=== PATIENT | female | born 1965 | race Caucasian/White ===

== ENCOUNTER 2019-04-16 10:38 | Inpatient (IN) | payer OTHER ==
[~2019-04-16] VITALS: Ht 175.3 cm; Wt 127.0 kg
[2019-04-16] MEDS ORDERED: NAPR500 PO (11:08)
[2019-04-16] MEDS ORDERED: CYCL10 PO (11:08)
[2019-04-16 13:37] LABS: BASOPHILS ABSOLUTE AUTO 0.03 K/mm3 (0.00-0.23); BASOPHILS PERCENT AUTO 0 % (0-2); EOSINOPHILS ABSOLUTE AUTO 0.07 K/mm3 (0.00-0.68); EOSINOPHILS PERCENT AUTO 1 % (0-6); Hemoglobin 13.6 g/dL (11.5-16.0); IMMATURE GRAN ABSOLUTE AUTO 0.03 K/mm3 (0.00-0.10); IMMATURE GRAN PERCENT AUTO 0 % (0-1); LYMPHOCYTES ABSOLUTE AUTO 1.24 K/mm3 (0.84-5.20); LYMPHOCYTES PERCENT AUTO 14 % (21-46); MONOCYTES ABSOLUTE AUTO 0.58 K/mm3 (0.16-1.47); MONOCYTES PERCENT AUTO 6 % (4-13); Mean Corpuscular HGB Conc 32.4 g/dL (31.5-36.5); Mean Corpuscular Volume 90 fL (80-100); Mean Platelet Volume 11.1 fL (9.1-12.4); NEUTROPHILS ABSOLUTE AUTO 7.13 K/mm3 (1.96-9.15); NEUTROPHILS PERCENT AUTO 79 % (41-73); Platelet Count 272 K/mm3 (150-400); RDW Coefficient Variation 13.1 % (11.7-14.2); RDW Standard Deviation 42.9 fL (35.1-46.3); Red Blood Cell Count 4.69 M/mm3 (3.80-5.20); White Blood Cell Count 9.08 K/mm3 (4.00-11.30)
[2019-04-16 14:05] LABS: Alanine Aminotransfer (ALT/SGP 22 U/L (12-78); Albumin/Globulin Ratio 0.6 (0.8-1.8); Alk Phos 110 U/L (50-136); Anion Gap 7 mmol/L (6-16); Aspartate Aminotrans (AST/SGOT 17 U/L (12-37); Bilirubin, Total 0.5 mg/dL (0.1-1.0); Blood Urea Nitrogen 13 mg/dL (8-24); Bun/Creatinine Ratio 19.5 (12.0-20.0); CO2, Blood 25 mmol/L (21-32); Calcium, Blood 8.9 mg/dL (8.5-10.1); Chloride, Blood 107 mmol/L (98-108); Creatinine, Blood 0.67 mg/dL (0.40-1.00); Globulin, Blood 4.9 g/dL (2.2-4.0); Glomerular Filtration Rate >60 (60-); Glucose, Blood 100 mg/dL (70-99); Potassium, Blood 3.6 mmol/L (3.5-5.5); Sodium, Blood 139 mmol/L (136-145); Total Protein, Blood 7.9 g/dL (6.4-8.2)
[2019-04-16] MEDS ORDERED: IBUP800 PO (14:11)
[2019-04-16] MEDS ORDERED: ACET500 PO (14:11)
[2019-04-16] MEDS ORDERED: MULTIVITAMINS1 EAC3 PO (14:12)
[2019-04-16] MEDS ORDERED: TURMERIC PO (14:12)
[2019-04-16 17:20] LABS: Source, Urine Clean Catch
[2019-04-16 17:22] LABS: Bilirubin, Urine Neg (Neg); Blood, Urine Neg (Neg); Glucose Qualitative, Urine Neg (Neg); Ketones, Urine 1+ (Neg); Leukocyte Esterase, Urine 1+ (Neg); Nitrite, Urine Neg (Neg); Protein, Urine Neg (Neg); Urobilinogen, Urine NORM (Normal)
[2019-04-16 17:29] LABS: Appearance, Urine Clear (Clear); Color, Urine Yellow (P-Yellow)
[2019-04-16 17:30] LABS: Red Blood Cells, Urine 0-2 /hpf (0-2)
[2019-04-16 17:31] LABS: Bacteria Few /hpf; Squamous Epithelial Cells Mod /hpf (Few)
--- NOTE | 2019-04-16 19:02 | NUR ---
ER ADMIT- PT ARRIVED TO ROOM 309 VIA REJI FROM ED AT 1745, PT A 4 PERSON SLIDE INTO BED. PT A/OX4. PT REPORTS 1/10 PAIN AT REST AND 8/10 PAIN TO LOWER BACK AND INTO BUTTOCKS WITH ANY MOVEMENT. PT REPORTS IT FEELS LIKE A LIGHTNING STRIKE. PT DENIES ANY N/T. PT REPORTS INCREASED PAIN WITH LIFTING BLE, RIGHT GREATER THEN LEFT. [employer] ENGINEER IN TO PLACE BACK BRACE ON. NO OTHER COMPLAINTS. REPORT GIVEN TO NIGHT RN.
[2019-04-17 05:39] LABS: BASOPHILS ABSOLUTE AUTO 0.03 K/mm3 (0.00-0.23); BASOPHILS PERCENT AUTO 1 % (0-2); EOSINOPHILS ABSOLUTE AUTO 0.15 K/mm3 (0.00-0.68); EOSINOPHILS PERCENT AUTO 3 % (0-6); Hematocrit 38.6 % (33.0-51.0); Hemoglobin 12.4 g/dL (11.5-16.0); IMMATURE GRAN ABSOLUTE AUTO 0.01 K/mm3 (0.00-0.10); IMMATURE GRAN PERCENT AUTO 0 % (0-1); LYMPHOCYTES ABSOLUTE AUTO 1.52 K/mm3 (0.84-5.20); LYMPHOCYTES PERCENT AUTO 26 % (21-46); MONOCYTES ABSOLUTE AUTO 0.52 K/mm3 (0.16-1.47); MONOCYTES PERCENT AUTO 9 % (4-13); Mean Corpuscular HGB 28.8 pg (26.0-34.0); Mean Corpuscular HGB Conc 32.1 g/dL (31.5-36.5); Mean Corpuscular Volume 90 fL (80-100); Mean Platelet Volume 11.1 fL (9.1-12.4); NEUTROPHILS ABSOLUTE AUTO 3.65 K/mm3 (1.96-9.15); NEUTROPHILS PERCENT AUTO 62 % (41-73); Platelet Count 249 K/mm3 (150-400); RDW Coefficient Variation 13.2 % (11.7-14.2); RDW Standard Deviation 43.9 fL (35.1-46.3); Red Blood Cell Count 4.31 M/mm3 (3.80-5.20); White Blood Cell Count 5.88 K/mm3 (4.00-11.30)
[2019-04-17 05:59] LABS: Anion Gap 7 mmol/L (6-16); Blood Urea Nitrogen 16 mg/dL (8-24); Bun/Creatinine Ratio 25.8 (12.0-20.0); CO2, Blood 25 mmol/L (21-32); Calcium, Blood 8.6 mg/dL (8.5-10.1); Chloride, Blood 105 mmol/L (98-108); Creatinine, Blood 0.62 mg/dL (0.40-1.00); Glomerular Filtration Rate >60 (60-); Glucose, Blood 98 mg/dL (70-99); Potassium, Blood 3.5 mmol/L (3.5-5.5); Sodium, Blood 137 mmol/L (136-145)
--- NOTE | 2019-04-17 06:28 | NUR ---
SHIFT SUMMARY: PATIENT HAS SLEPT WELL THIS SHIFT. VS ARE STABLE, PAIN IS WELL CONTROLED WITH ULTRAM GIVEN TWICE DURING SHIFT. PATIENT HAS BACK BRACE IN PLACE AND IS REPORTING MUCH LESS PAIN WHEN AMBULATING OR TRANSFERING.
--- NOTE | 2019-04-17 16:15 | NUR ---
REPORT CALLED TO LUIS Castellano AT [facility]. PT. BEING TRANSFERRED VIA [facility] TRANSPORT TO [facility], WILL BE IN ROOM 0593.
--- NOTE | 2019-04-17 16:52 | NUR ---
PT. JUST PICKED UP BY [facility] FOR TRANSPORT TO [facility]. IV LEFT IN PLACE AND BACK BRACE IN PLACE.
== END 2019-04-17 16:51 | disposition short-term general hospital (02) | DRG 552 ==
LOC: ER 10:38 → MEDS 16:46
PROVIDERS: Physician Assistant; ADMIT Family Medicine
DX: M46.47 Discitis, unspecified, lumbosacral region (principal); Z68.41 Body mass index [BMI] 40.0-44.9, adult; E66.9 Obesity, unspecified; Z87.891 Personal history of nicotine dependence; Z79.1 Long term (current) use of non-steroidal anti-inflammatories (NSAID)
CPT/HCPCS: 36415; 72131; 72158; 80048; 80053; 81001; 83605; 85025; 85651; 86141; 87040; 87086; 96365; 96366; 96367; 96372-59; 99285-25; A9270-GY; A9577; J0696; J1885; J3370; J7050

== ENCOUNTER 2019-04-20 00:59 | Day surgery (SDC) | payer OTHER ==
[~2019-04-20 00:59] MED LIST: ACET500 PO; CYCL10 PO; IBUP800 PO; MULTIVITAMINS1 EAC3 PO; NAPR500 PO; TURMERIC PO
[2019-04-20] MEDS ORDERED: CEFTRIAXONE2 GM IV (12:02)
== END 2019-04-20 11:42 | disposition home or self-care (01) ==
LOC: ATC 00:59
DX: M46.46 Discitis, unspecified, lumbar region (principal); E66.9 Obesity, unspecified; Z68.39 Body mass index [BMI] 39.0-39.9, adult; Z87.891 Personal history of nicotine dependence
CPT/HCPCS: 96365; J0696

== ENCOUNTER 2019-04-21 00:32 | Day surgery (SDC) | payer OTHER ==
[~2019-04-21 00:32] MED LIST changes: +CEFTRIAXONE2 GM IV
== END 2019-04-21 14:35 | disposition home or self-care (01) ==
LOC: ATC 00:32
DX: M46.47 Discitis, unspecified, lumbosacral region (principal); E66.9 Obesity, unspecified; Z68.39 Body mass index [BMI] 39.0-39.9, adult; Z79.2 Long term (current) use of antibiotics; Z79.1 Long term (current) use of non-steroidal anti-inflammatories (NSAID); Z79.899 Other long term (current) drug therapy; Z87.891 Personal history of nicotine dependence
CPT/HCPCS: 96365; J0696

== ENCOUNTER 2019-04-22 00:19 | Day surgery (SDC) | payer OTHER | END 2019-04-22 14:00 | disposition home or self-care (01) | LOC: ATC 00:19 | DX: M46.47 Discitis, unspecified, lumbosacral region (principal); E66.9 Obesity, unspecified; Z68.39 Body mass index [BMI] 39.0-39.9, adult; Z79.2 Long term (current) use of antibiotics; Z79.1 Long term (current) use of non-steroidal anti-inflammatories (NSAID); Z79.899 Other long term (current) drug therapy; Z87.891 Personal history of nicotine dependence | CPT/HCPCS: 96365; J0696 ==

== ENCOUNTER 2019-04-23 01:42 | Day surgery (SDC) | payer OTHER | END 2019-04-23 14:10 | disposition home or self-care (01) | LOC: ATC 01:42 | DX: M46.47 Discitis, unspecified, lumbosacral region (principal); E66.9 Obesity, unspecified; Z68.39 Body mass index [BMI] 39.0-39.9, adult; Z79.2 Long term (current) use of antibiotics; Z79.1 Long term (current) use of non-steroidal anti-inflammatories (NSAID); Z79.899 Other long term (current) drug therapy; Z87.891 Personal history of nicotine dependence | CPT/HCPCS: 96365; J0696 ==

== ENCOUNTER 2019-04-24 14:15 | Day surgery (SDC) | payer OTHER | END 2019-04-24 14:44 | disposition home or self-care (01) | LOC: ATC 14:15 | DX: M46.47 Discitis, unspecified, lumbosacral region (principal); E66.9 Obesity, unspecified; Z68.39 Body mass index [BMI] 39.0-39.9, adult; Z79.2 Long term (current) use of antibiotics; Z79.1 Long term (current) use of non-steroidal anti-inflammatories (NSAID); Z79.899 Other long term (current) drug therapy; Z87.891 Personal history of nicotine dependence | CPT/HCPCS: 96365; J0696 ==

== ENCOUNTER 2019-04-25 13:23 | Day surgery (SDC) | payer OTHER | END 2019-04-25 14:11 | disposition home or self-care (01) | LOC: ATC 13:23 | DX: M46.47 Discitis, unspecified, lumbosacral region (principal); E66.9 Obesity, unspecified; Z68.39 Body mass index [BMI] 39.0-39.9, adult; Z79.2 Long term (current) use of antibiotics; Z79.899 Other long term (current) drug therapy; Z87.891 Personal history of nicotine dependence | CPT/HCPCS: 96365; J0696 ==

== ENCOUNTER 2019-04-26 00:14 | Day surgery (SDC) | payer OTHER | END 2019-04-26 14:30 | disposition home or self-care (01) | LOC: ATC 00:14 | DX: M46.47 Discitis, unspecified, lumbosacral region (principal); E66.9 Obesity, unspecified; Z68.39 Body mass index [BMI] 39.0-39.9, adult; Z79.2 Long term (current) use of antibiotics; Z79.899 Other long term (current) drug therapy; Z87.891 Personal history of nicotine dependence | CPT/HCPCS: 96365; J0696 ==

== ENCOUNTER 2019-04-27 07:37 | Day surgery (SDC) | payer OTHER ==
[2019-04-27 14:52] LABS: BASOPHILS ABSOLUTE AUTO 0.03 K/mm3 (0.00-0.23); BASOPHILS PERCENT AUTO 0 % (0-2); EOSINOPHILS ABSOLUTE AUTO 0.08 K/mm3 (0.00-0.68); EOSINOPHILS PERCENT AUTO 1 % (0-6); Hematocrit 41.3 % (33.0-51.0); Hemoglobin 13.5 g/dL (11.5-16.0); IMMATURE GRAN ABSOLUTE AUTO 0.02 K/mm3 (0.00-0.10); IMMATURE GRAN PERCENT AUTO 0 % (0-1); LYMPHOCYTES ABSOLUTE AUTO 1.54 K/mm3 (0.84-5.20); LYMPHOCYTES PERCENT AUTO 23 % (21-46); MONOCYTES ABSOLUTE AUTO 0.54 K/mm3 (0.16-1.47); MONOCYTES PERCENT AUTO 8 % (4-13); Mean Corpuscular HGB Conc 32.7 g/dL (31.5-36.5); Mean Corpuscular Volume 89 fL (80-100); Mean Platelet Volume 10.8 fL (9.1-12.4); NEUTROPHILS PERCENT AUTO 68 % (41-73); Platelet Count 296 K/mm3 (150-400); RDW Coefficient Variation 13.2 % (11.7-14.2); RDW Standard Deviation 42.7 fL (35.1-46.3); Red Blood Cell Count 4.65 M/mm3 (3.80-5.20); White Blood Cell Count 6.81 K/mm3 (4.00-11.30)
[2019-04-27 15:21] LABS: Alanine Aminotransfer (ALT/SGP 27 U/L (12-78); Albumin, Blood 3.2 g/dL (3.4-5.0); Albumin/Globulin Ratio 0.6 (0.8-1.8); Alk Phos 94 U/L (50-136); Anion Gap 7 mmol/L (6-16); Aspartate Aminotrans (AST/SGOT 19 U/L (12-37); Bilirubin, Total 0.4 mg/dL (0.1-1.0); Blood Urea Nitrogen 11 mg/dL (8-24); Bun/Creatinine Ratio 16.3 (12.0-20.0); CO2, Blood 26 mmol/L (21-32); Calcium, Blood 9.1 mg/dL (8.5-10.1); Chloride, Blood 107 mmol/L (98-108); Creatinine, Blood 0.68 mg/dL (0.40-1.00); Glomerular Filtration Rate >60 (60-); Glucose, Blood 102 mg/dL (70-99); Potassium, Blood 4.1 mmol/L (3.5-5.5); Sodium, Blood 140 mmol/L (136-145); Total Protein, Blood 8.2 g/dL (6.4-8.2)
== END 2019-04-27 15:02 | disposition home or self-care (01) ==
LOC: ATC 07:37
PROVIDERS: Internal Medicine Infectious Disease
DX: M46.47 Discitis, unspecified, lumbosacral region (principal); E66.9 Obesity, unspecified; Z68.39 Body mass index [BMI] 39.0-39.9, adult; Z79.2 Long term (current) use of antibiotics; Z79.899 Other long term (current) drug therapy; Z87.891 Personal history of nicotine dependence
CPT/HCPCS: 80053; 85025; 86140; 96365; J0696

== ENCOUNTER 2019-04-28 00:02 | Day surgery (SDC) | payer OTHER | END 2019-04-28 14:29 | disposition home or self-care (01) | LOC: ATC 00:02 | DX: M46.47 Discitis, unspecified, lumbosacral region (principal); E66.9 Obesity, unspecified; Z68.39 Body mass index [BMI] 39.0-39.9, adult; Z79.2 Long term (current) use of antibiotics; Z79.1 Long term (current) use of non-steroidal anti-inflammatories (NSAID); Z79.899 Other long term (current) drug therapy; Z87.891 Personal history of nicotine dependence | CPT/HCPCS: 96365; J0696 ==

== ENCOUNTER 2019-04-29 00:36 | Day surgery (SDC) | payer OTHER | END 2019-04-29 23:10 | disposition home or self-care (01) | LOC: ATC 00:36 | DX: M46.47 Discitis, unspecified, lumbosacral region (principal); R73.03 Prediabetes; E66.9 Obesity, unspecified; Z68.39 Body mass index [BMI] 39.0-39.9, adult; Z79.2 Long term (current) use of antibiotics; Z79.1 Long term (current) use of non-steroidal anti-inflammatories (NSAID); Z79.899 Other long term (current) drug therapy; Z87.891 Personal history of nicotine dependence | CPT/HCPCS: 96365; J0696 ==

== ENCOUNTER 2019-04-30 01:01 | Day surgery (SDC) | payer OTHER | END 2019-04-30 23:11 | disposition home or self-care (01) | LOC: ATC 01:01 | DX: M46.47 Discitis, unspecified, lumbosacral region (principal); E66.9 Obesity, unspecified; Z68.39 Body mass index [BMI] 39.0-39.9, adult; Z79.2 Long term (current) use of antibiotics; Z79.1 Long term (current) use of non-steroidal anti-inflammatories (NSAID); Z79.899 Other long term (current) drug therapy; Z87.891 Personal history of nicotine dependence | CPT/HCPCS: 96365; J0696 ==

== ENCOUNTER 2019-05-01 13:42 | Day surgery (SDC) | payer OTHER | END 2019-05-01 14:30 | disposition home or self-care (01) | LOC: ATC 13:42 | DX: M46.47 Discitis, unspecified, lumbosacral region (principal); E66.9 Obesity, unspecified; Z68.39 Body mass index [BMI] 39.0-39.9, adult; Z79.2 Long term (current) use of antibiotics; Z79.1 Long term (current) use of non-steroidal anti-inflammatories (NSAID); Z79.899 Other long term (current) drug therapy; Z87.891 Personal history of nicotine dependence | CPT/HCPCS: 96365; J0696 ==

== ENCOUNTER 2019-05-02 13:48 | Day surgery (SDC) | payer OTHER | END 2019-05-02 14:23 | disposition home or self-care (01) | LOC: ATC 13:48 | DX: M46.47 Discitis, unspecified, lumbosacral region (principal); E66.9 Obesity, unspecified; Z68.39 Body mass index [BMI] 39.0-39.9, adult; Z79.2 Long term (current) use of antibiotics; Z79.1 Long term (current) use of non-steroidal anti-inflammatories (NSAID); Z79.899 Other long term (current) drug therapy; Z87.891 Personal history of nicotine dependence | CPT/HCPCS: 96365; J0696 ==

== ENCOUNTER 2019-05-03 00:12 | Day surgery (SDC) | payer OTHER | END 2019-05-03 15:21 | disposition home or self-care (01) | LOC: ATC 00:12 | DX: M46.47 Discitis, unspecified, lumbosacral region (principal); E66.9 Obesity, unspecified; Z68.39 Body mass index [BMI] 39.0-39.9, adult; Z79.2 Long term (current) use of antibiotics; Z79.1 Long term (current) use of non-steroidal anti-inflammatories (NSAID); Z79.899 Other long term (current) drug therapy; Z87.891 Personal history of nicotine dependence | CPT/HCPCS: 96365; J0696; J2997 ==

== ENCOUNTER 2019-05-04 00:08 | Day surgery (SDC) | payer OTHER ==
[2019-05-04 14:32] LABS: BASOPHILS ABSOLUTE AUTO 0.04 K/mm3 (0.00-0.23); BASOPHILS PERCENT AUTO 1 % (0-2); EOSINOPHILS ABSOLUTE AUTO 0.19 K/mm3 (0.00-0.68); EOSINOPHILS PERCENT AUTO 4 % (0-6); Hematocrit 38.6 % (33.0-51.0); Hemoglobin 12.7 g/dL (11.5-16.0); IMMATURE GRAN ABSOLUTE AUTO 0.01 K/mm3 (0.00-0.10); IMMATURE GRAN PERCENT AUTO 0 % (0-1); LYMPHOCYTES ABSOLUTE AUTO 1.37 K/mm3 (0.84-5.20); LYMPHOCYTES PERCENT AUTO 29 % (21-46); MONOCYTES PERCENT AUTO 11 % (4-13); Mean Corpuscular HGB 29.1 pg (26.0-34.0); Mean Corpuscular HGB Conc 32.9 g/dL (31.5-36.5); Mean Corpuscular Volume 89 fL (80-100); Mean Platelet Volume 11.6 fL (9.1-12.4); NEUTROPHILS ABSOLUTE AUTO 2.58 K/mm3 (1.96-9.15); NEUTROPHILS PERCENT AUTO 55 % (41-73); Platelet Count 241 K/mm3 (150-400); RDW Coefficient Variation 13.3 % (11.7-14.2); RDW Standard Deviation 43.4 fL (35.1-46.3); Red Blood Cell Count 4.36 M/mm3 (3.80-5.20); White Blood Cell Count 4.69 K/mm3 (4.00-11.30)
[2019-05-04 14:50] LABS: Alanine Aminotransfer (ALT/SGP 41 U/L (12-78); Albumin, Blood 2.9 g/dL (3.4-5.0); Albumin/Globulin Ratio 0.6 (0.8-1.8); Alk Phos 83 U/L (50-136); Anion Gap 5 mmol/L (6-16); Aspartate Aminotrans (AST/SGOT 31 U/L (12-37); Bilirubin, Total 0.4 mg/dL (0.1-1.0); Blood Urea Nitrogen 9 mg/dL (8-24); Bun/Creatinine Ratio 15.1 (12.0-20.0); CO2, Blood 27 mmol/L (21-32); Calcium, Blood 8.5 mg/dL (8.5-10.1); Chloride, Blood 107 mmol/L (98-108); Globulin, Blood 4.5 g/dL (2.2-4.0); Glomerular Filtration Rate >60 (60-); Glucose, Blood 103 mg/dL (70-99); Sodium, Blood 139 mmol/L (136-145); Total Protein, Blood 7.4 g/dL (6.4-8.2)
== END 2019-05-04 14:00 | disposition home or self-care (01) ==
LOC: ATC 00:08
PROVIDERS: Internal Medicine Infectious Disease
DX: M46.47 Discitis, unspecified, lumbosacral region (principal); E66.9 Obesity, unspecified; Z68.39 Body mass index [BMI] 39.0-39.9, adult; Z79.2 Long term (current) use of antibiotics; Z79.1 Long term (current) use of non-steroidal anti-inflammatories (NSAID); Z79.899 Other long term (current) drug therapy; Z87.891 Personal history of nicotine dependence
CPT/HCPCS: 80053; 85025; 86140; 96365; J0696

== ENCOUNTER 2019-05-05 00:17 | Day surgery (SDC) | payer OTHER | END 2019-05-05 14:15 | disposition home or self-care (01) | LOC: ATC 00:17 | DX: M46.47 Discitis, unspecified, lumbosacral region (principal); E66.9 Obesity, unspecified; Z68.39 Body mass index [BMI] 39.0-39.9, adult; Z79.2 Long term (current) use of antibiotics; Z79.899 Other long term (current) drug therapy; Z87.891 Personal history of nicotine dependence | CPT/HCPCS: 96365; J0696 ==

== ENCOUNTER 2019-05-06 00:14 | Day surgery (SDC) | payer OTHER | END 2019-05-06 14:28 | disposition home or self-care (01) | LOC: ATC 00:14 | DX: M46.47 Discitis, unspecified, lumbosacral region (principal); E66.9 Obesity, unspecified; Z68.39 Body mass index [BMI] 39.0-39.9, adult; Z79.2 Long term (current) use of antibiotics; Z79.899 Other long term (current) drug therapy; Z87.891 Personal history of nicotine dependence | CPT/HCPCS: 96365; J0696 ==

== ENCOUNTER 2019-05-07 02:18 | Day surgery (SDC) | payer OTHER ==
[2019-05-08] MEDS ORDERED: ALBU90OI INH (15:19)
== END 2019-05-07 14:00 | disposition home or self-care (01) ==
LOC: ATC 02:18
DX: M46.47 Discitis, unspecified, lumbosacral region (principal); E66.9 Obesity, unspecified; Z68.39 Body mass index [BMI] 39.0-39.9, adult; Z79.2 Long term (current) use of antibiotics; Z79.899 Other long term (current) drug therapy; Z87.891 Personal history of nicotine dependence
CPT/HCPCS: 96365; J0696

== ENCOUNTER 2019-05-08 13:23 | Day surgery (SDC) | payer OTHER ==
[2019-05-08] MEDS ORDERED: ALBU90OI INH (15:19)
--- NOTE | 2019-05-08 15:23 | NUR ---
PT ARRIVES TO ROOM 205. REPORTS HAS SOB, BIOX 96% ON RA. WAS TALKING 4-5 WORD SENTENCES. AFTER SITTING IN CHAIR, SOB HAS IMPROVED. ASKED THIS RN IS IT WAS OKAY TO USE HER INHALER. QUESTIONED PT TO HOW OLD IT WAS, SHE REPORTED "ITS OLD, BC HAD IT FOR A COUPLE YEARS OR SO". ENCOURAGED PT TO GET A NEW PRESCRIPTION THAT ONE IS OUT OF DATE. VERBALIZES UNDERSTANDING. ABLE TO TALK COMPLETE SENTENCES AFTER BEING IN CHAIR X5 MIN. SEEING PT ON SECOND FLOOR IN HOSPITAL, WHICH A LONGER WALK THAN NORMAL FOR THIS APPT. PT REPORTS AT HER APPT LAST WEEK THE DR ASKED HER IF SHE WAS SOB, PT REPORTS SHE TOLD HER DR NO. NOTICED INCREASING SOB YESTERDAY.
== END 2019-05-08 14:54 | disposition home or self-care (01) ==
LOC: ATC 13:23
DX: M46.47 Discitis, unspecified, lumbosacral region (principal); E66.9 Obesity, unspecified; Z68.39 Body mass index [BMI] 39.0-39.9, adult; Z79.2 Long term (current) use of antibiotics; Z79.899 Other long term (current) drug therapy; Z87.891 Personal history of nicotine dependence
CPT/HCPCS: 96365; J0696

== ENCOUNTER 2019-05-09 13:23 | Day surgery (SDC) | payer OTHER ==
[~2019-05-09 13:23] MED LIST changes: +ALBU90OI INH
--- NOTE | 2019-05-09 15:56 | NUR ---
1404: PT ARRIVES VIA W/C, NIECE IS PUSHING PT DOWN WAN TO RM 205. PT REPORTS TO THIS RN THAT SHE "DOESNT FEEL WELL". UPON FURTHER ASSESSMENT, PT REPORTS SHE GETS LIGHTHEADED, DIZZY AND SOB. VS TAKEN SEE DOCUMENTATION. PT TEARFUL AND REPORTS THAT SHE CAN "FEEL THE PICC LINE". LINE FLUSHES WELL AND NO CHANGE FROM YESTERDAY. PALPATED PULSE @ 88 AND REGULAR CHECKED AFTER PT RESTING IN CHAIR. PT REPORTS SHE SPOKE WITH HER NEIGHBOR WHO IS AN RN AND SHE TOLD HER "SOUNDS LIKE YOU'RE HAVING A PANIC ATTACK". THIS RN PRESENT IN ROOM DURING HER INFUSION. DISCUSSED WITH PT THAT IF HER SYMPTOMS WORSEN OR DO NOT GET BETTER TO SEEK MEDICAL ATTENTION. BP CHECKED WHILE PT STANDING AND FOLLOWS 118/73, HR 131 BIOX 96% ON RA. PT REPORTS THAT SHE HAS AN APPT WITH PCP ON 05/11/19 BUT UNDERSTANDS THAT SHE SHOULD CALL HER TOMORROW WITH NEW CONCERNS. PT LEFT IN STABLE CONDITION, SKIN PWD.
== END 2019-05-09 14:30 | disposition home or self-care (01) ==
LOC: ATC 13:23
DX: M46.47 Discitis, unspecified, lumbosacral region (principal); E66.9 Obesity, unspecified; Z68.38 Body mass index [BMI] 38.0-38.9, adult; Z79.2 Long term (current) use of antibiotics; Z79.899 Other long term (current) drug therapy; Z87.891 Personal history of nicotine dependence
CPT/HCPCS: 96365; J0696

== ENCOUNTER 2019-05-10 00:13 | Day surgery (SDC) | payer OTHER ==
[2019-05-11] MEDS ORDERED: BACLOFEN5 MG PO (12:19)
[2019-05-11] MEDS ORDERED: GABA100 PO (12:20)
[2019-05-11] MEDS ORDERED: OXYC5 PO (12:29)
[2019-05-11] MEDS ORDERED: Rocephin 1g1 G/50 ML IV (15:17)
== END 2019-05-10 13:58 | disposition home or self-care (01) ==
LOC: ATC 00:13
DX: M46.47 Discitis, unspecified, lumbosacral region (principal); E66.9 Obesity, unspecified; Z68.39 Body mass index [BMI] 39.0-39.9, adult; Z79.2 Long term (current) use of antibiotics; Z79.1 Long term (current) use of non-steroidal anti-inflammatories (NSAID); Z79.899 Other long term (current) drug therapy; Z87.891 Personal history of nicotine dependence
CPT/HCPCS: 96365; J0696

== ENCOUNTER 2019-05-11 10:41 | Inpatient (IN) | payer OTHER ==
[~2019-05-11] VITALS: Ht 175.3 cm; Wt 130.8 kg
[2019-05-11 11:30] LABS: BASOPHILS ABSOLUTE AUTO 0.07 K/mm3 (0.00-0.23); BASOPHILS PERCENT AUTO 1 % (0-2); EOSINOPHILS ABSOLUTE AUTO 0.05 K/mm3 (0.00-0.68); EOSINOPHILS PERCENT AUTO 1 % (0-6); Hemoglobin 11.7 g/dL (11.5-16.0); IMMATURE GRAN ABSOLUTE AUTO 0.05 K/mm3 (0.00-0.10); IMMATURE GRAN PERCENT AUTO 1 % (0-1); LYMPHOCYTES PERCENT AUTO 15 % (21-46); MONOCYTES ABSOLUTE AUTO 0.96 K/mm3 (0.16-1.47); MONOCYTES PERCENT AUTO 10 % (4-13); Mean Corpuscular HGB 28.5 pg (26.0-34.0); Mean Corpuscular HGB Conc 32.5 g/dL (31.5-36.5); Mean Corpuscular Volume 88 fL (80-100); Mean Platelet Volume 11.3 fL (9.1-12.4); NEUTROPHILS ABSOLUTE AUTO 7.32 K/mm3 (1.96-9.15); NEUTROPHILS PERCENT AUTO 74 % (41-73); Platelet Count 235 K/mm3 (150-400); RDW Coefficient Variation 13.7 % (11.7-14.2); RDW Standard Deviation 43.2 fL (35.1-46.3); Red Blood Cell Count 4.11 M/mm3 (3.80-5.20); White Blood Cell Count 9.95 K/mm3 (4.00-11.30)
[2019-05-11 11:46] LABS: Alanine Aminotransfer (ALT/SGP 23 U/L (12-78); Albumin, Blood 2.9 g/dL (3.4-5.0); Albumin/Globulin Ratio 0.6 (0.8-1.8); Anion Gap 9 mmol/L (6-16); Aspartate Aminotrans (AST/SGOT 19 U/L (12-37); Bilirubin, Total 0.6 mg/dL (0.1-1.0); Blood Urea Nitrogen 13 mg/dL (8-24); CO2, Blood 24 mmol/L (21-32); Calcium, Blood 8.6 mg/dL (8.5-10.1); Chloride, Blood 105 mmol/L (98-108); Creatinine, Blood 0.69 mg/dL (0.40-1.00); Globulin, Blood 4.5 g/dL (2.2-4.0); Glomerular Filtration Rate >60 (60-); Glucose, Blood 129 mg/dL (70-99); Potassium, Blood 3.6 mmol/L (3.5-5.5); Sodium, Blood 138 mmol/L (136-145); Total Protein, Blood 7.4 g/dL (6.4-8.2)
[2019-05-11 11:49] LABS: Troponin I 0.402 ng/mL (0.000-0.040)
[2019-05-11 11:50] LABS: Alk Phos 82 U/L (50-136)
[2019-05-11] MEDS ORDERED: BACLOFEN5 MG PO (12:19)
[2019-05-11] MEDS ORDERED: GABA100 PO (12:20)
[2019-05-11] MEDS ORDERED: OXYC5 PO (12:29)
[2019-05-11 13:17] LABS: International Normalized Ratio 1.2; Prothrombin Time Results 12.7 Sec (9.7-11.5)
[2019-05-11] MEDS ORDERED: Rocephin 1g1 G/50 ML IV (15:17)
--- NOTE | 2019-05-11 19:00 | NUR ---
Patient arrived back in room at 181 and was in reverse trendelenberg position approx 30 degrees. She has righ groin sheath with twin EKOS infusing 35ml/hr NS, TPA 1mg/hr that will changes to 0.5mg/hr pre-programed by cath lab tech and verified order with Dr Lwoery and placed nurse notify in of instructions. There are two sets of pumps with EKOS. She is on 2L via NC and sats 93%. Sister assisted her with dinner and she tolerated about 50%. Gave report to Es SUTTON. Groin site C/D/I with no signs of bleeding or oozing. Strong palpable pedal pulses.
--- NOTE | 2019-05-11 19:00 | NUR ---
ASSUMED CARE ASSUMED CARE OF PATIENT. AWAKE AND ALERT. FAMILY AT BEDSIDE. PT IS LYING FLAT. REMINDED PATIENT OF NEED TO STAY FLAT, KEEP LEG STRAIGHT, AND KEEP HEAD ON PILLOW. MONITOR SHOWS NSR. VSS. O2 @ 2LNC. RESPIRATIONS EVEN AND UNLABORED, BUT SHALLOW. ENCOURAGED PT TO COUGH AND DEEP BREATHE FREQUENTLY. DENIES NAUSEA. RIGHT GROIN WITH EKOS CATHETERS X 2- SITE IS SOFT AND DRSG IS D/I. HEPARIN, TPA, AND NS INFUSING THROUGH BOTH CATHETERS PER ORDER. HEPARIN INFUSING @ 2.38UNITS/KG/HR (6CC/HR). TPA IS INFUSING @ 1MG/HR. NS INFUSING AT 35CC/HR. FEET ARE WARM, GOOD DR/PT PULSES NOTED. DENIES ANY NUMBNESS OR TINGLING AT THIS TIME. RECENTLY MEDICATED WITH PAIN MEDICATION AND PAIN IS DECREASING PER PATIENT. SEE ADMIT ASSESSMENT FOR FULL ASSESSMENT.
--- NOTE | 2019-05-11 19:00 | NUR ---
Medicated for pain per jun for back pain 10/28.
--- NOTE | 2019-05-11 22:00 | NUR ---
COUGH PT CONCERNED REGARDING PRESENCE OF COUGH. STATES "I FEEL LIKE I'M GOING TO GET PNEUMONIA." APPEARS ANXIOUS. ENCOURAGED PT TO CONTINUE TO DEEP BREATHE AND COUGH. INCENTIVE SPIROMETER AND FLUTTER VALVE GIVEN TO PATIENT. REMAINS ON 2L NC. RESPIRATIONS EVEN AND UNLABORED.
--- NOTE | 2019-05-11 22:00 | NUR ---
TPA TPA DECREASED TO 0.5MG/HR IN BOTH EKOS PER ORDER.
--- NOTE | 2019-05-11 23:55 | NUR ---
O2 SATS DECREASING TO 87% WHEN ASLEEP. PT IS BREATHING MORE THROUGH MOUTH THAN NOSE. ATTEMPTED TO PLACE CANNULA INTO MOUTH, BUT PT REMOVES IT, STATING THAT HER MOUTH IS TOO DRY. O2 TITRATED UP TO 6L TO KEEP SPO2 >90%. WILL CONTINUE TO MONITOR.
--- NOTE | 2019-05-12 00:20 | NUR ---
PICC LINE PICC LINE PLACEMENT HAS NOT BEEN CONFIRMED THIS ADMISSION. CALL TO DR. YUN- PLACEMENT CONFIRMED BY CXR THAT WAS DONE 05/11/19.
[2019-05-12 02:15] LABS: Hematocrit 33.7 % (33.0-51.0); Hemoglobin 10.8 g/dL (11.5-16.0); Mean Corpuscular HGB 28.9 pg (26.0-34.0); Mean Corpuscular Volume 90 fL (80-100); Mean Platelet Volume 11.6 fL (9.1-12.4); Platelet Count 197 K/mm3 (150-400); RDW Coefficient Variation 13.8 % (11.7-14.2); RDW Standard Deviation 45.1 fL (35.1-46.3); Red Blood Cell Count 3.74 M/mm3 (3.80-5.20); White Blood Cell Count 8.02 K/mm3 (4.00-11.30)
[2019-05-12 02:31] LABS: Anion Gap 8 mmol/L (6-16); Blood Urea Nitrogen 11 mg/dL (8-24); Bun/Creatinine Ratio 18.5 (12.0-20.0); CO2, Blood 23 mmol/L (21-32); Chloride, Blood 109 mmol/L (98-108); Glomerular Filtration Rate >60 (60-); Glucose, Blood 116 mg/dL (70-99); Potassium, Blood 3.6 mmol/L (3.5-5.5); Sodium, Blood 140 mmol/L (136-145)
--- NOTE | 2019-05-12 06:02 | NUR ---
SHIFT SUMMARY NO ACUTE CHANGES DURING NOC. SLEPT INTERMITTENTLY. OCCASIONALLY ANXIOUS, BUT CALMS WITH REASSURANCE. VSS T/O NOC. HR 100-105. O2 AT 2L WHILE AWAKE, BUT PT REQUIRES 5-6L WHEN SLEEPING. USING IS AND FLUTTER VALVE WHEN AWAKE. OCCASIONAL MOIST COUGH. GONZALEZ PATENT AND DRAINING DARK YELLOW URINE. RIGHT GROIN WITH EKOS CATHETER X 2. SITE IS SOFT. NO HEMATOMA NOTED. SMALL AMOUNT OF OLD BLOOD NOTED ON GAUZE. RLE WITH CMS INTACT. FOOT IS WARM AND PULSES ARE PALPABLE. HEPARIN, TPA, AND NS CONTINUE TO INFUSE THROUGH EKOS CATHETERS PER ORDER. NS INFUSING AT 75CC/HR PER ORDER. NPO AT THIS TIME FOR RETURN TO HEEL SPRAYER FIRST TODAY. WILL REPORT TO DAY SHIFT RN WHEN AVAILABLE.
--- NOTE | 2019-05-12 08:00 | NUR ---
INITIAL ASSESSMENT PATIENT RESTING QUIETLY IN BED UPON ENTERING ROOM. PATIENT SUPINE AND AWARE OF THE RESTRICTIONS FOR R SHEATH AND EKOS IN PLACE. PATIENT ANXIOUS AT TIMES. PATIENT STATES SHE HAS TINGLING IN BILAT FEET. PATIENT AFEBRILE. PATIENT STATES CHRONIC BACK PAIN IS MANAGEABLE AT THIS TIME. PATIENT STATES THAT SHE IS "JUST STIR CRAZY" AND THAT IT IS HARD TO STAY IN BED FOR SO LONG WITHOUT BEING ABLE TO MOVE AROUND. PATIENT SATTING 93% ON 6 L NC. PATIENT RA AT HOME. LUNGS CLEAR IN UPPER LOBES AND DIMINISHED IN LOWER LOBES. PATIENT STATES THAT SHE HAS BEEN COUGHING UP A LITTLE BIT OF PHLEGM BUT SWALLOWING IT. PATIENT HAS BEEN USING INCENTIVE SPIROMETER AND FLUTTER VALVE. SHALLOW BREATHS NOTED. PATIENT IN SR TO ST, HR 90S TO LOW 100S. BP STABLE. TRACE EDEMA NOTED TO BLES. GI WNL. GONZALEZ IN PLACE; DRAINING YELLOW COLORED URINE. R GROIN VENOUS SHEATH IN PLACE WITH EKOS X 2. TPA INFUSING AT 0.5 MG/ HOUR, HEPARIN AT 0.5 MG/ HOUR AND NS AT 35 MLS/ HOUR INTO EACH EKOS. NS INFUSING AT 75 MLS/ HOUR. PATIENT HAS BEEN RECEIVING ROCEPHIN IV. BED LOW, CALL LIGHT IN REACH. WILL CONTINUE MONITORING PATIENT FREQUENTLY THROUGHOUT SHIFT.
--- NOTE | 2019-05-12 09:00 | NUR ---
DR. STARKS IN ROOM TO SPEAK WITH PATIENT. PATIENT CONCERNED THAT HER C-REACTIVE PROTEIN LAB HAS INCREASED FROM 1.7 TO 6.5. PATIENT STATES THAT SHE HAS BEEN SEEING AN INFECTIOUS DISEASE DR., PAIGE HULL, AT [facility] FOR HER DISKITIS. STATED TO PAY ATTENTION TO BIOMARKERS. DR. STARKS INFORMED. STATED HE WOULD CALL DR. HULL AND DISCUSS C-REACTIVE PROTEIN RESULT WITH HER. DR. STARKS STATED THAT HE WOULD BE TAKING PATIENT BACK TO CORPORATE ASSOCIATE THIS AFTERNOON. PATIENT NOW NPO. STATED HE WOULD PROBABLY BE PUTTING IN IVC FILTER. DR. STARKS STATED THAT IF PATIENT SEEMS TO BE HAVING INCREASED BACK PAIN THEN HE WOULD RECOMMEND A REPEAT MRI. PATIENT SATISFIED AT THIS TIME.
--- NOTE | 2019-05-12 11:00 | NUR ---
DR. LUNA HERE TO SEE PATIENT. DR. LUNA INFORMED OF DR. STARKS'S CONVERSATION WITH PATIENT. INFORMED THAT PATIENT NORMALLY RA BUT REMAINS ON 6 L NC TO KEEP SATS 90% AND GREATER.
--- NOTE | 2019-05-12 12:15 | NUR ---
PATIENT RESTING QUIETLY IN BED. WATCHING TV WITH SON. NO COMPLAINTS OF PAIN. AFEBRILE. PATIENT REMAINS SATTING 90% AND GREATER ON 6 L NC. UPPER LUNG LOBES COARSE, LOWER LUNG LOBES DIMINISHED. PATIENT IN SR TO ST, HR 80S TO LOW 100S. BP STABLE. ALL DRIPS REMAIN AT SAME RATE. R FEM SITE REMAINS WNL. NO ACUTE CHANGES TO NOTE ON AT THIS TIME. WILL CONTINUE TO MONITOR.
--- NOTE | 2019-05-12 15:17 | NUR ---
PATIENT TAKEN TO POKER ROOM MANAGER BY POKER ROOM MANAGER NURSES.
--- NOTE | 2019-05-12 15:35 | NUR ---
DR. LUNA INFORMED THAT DR. STARK WILL NOT BE ABLE TO BE CONSULTED UNTIL FRIDAY CONSULT LINE STATES HE IS UNAVAILABLE UNTIL THEN. WILL TRY AND CONSULT AGAIN TOMORROW. NO ORDERS RECEIVED.
--- NOTE | 2019-05-12 18:00 | NUR ---
PATIENT ARRIVED BACK FROM [facility] AND ACQUISITIONS BANKER. PATIENT AWAKE, ALERT/ ORIENTED X 4. PATIENT HAS TEMP OF 99.2 DEGREES FAHRENHEIT. HR AND BP STABLE. PATIENT HAS PINA DRESSING TO L POPLITEAL AND MYNX CLOSURE/ PINA DRESSING TO R FEM. BOTH SITES WNL- NO BLEEDING, BRUISING, HEMATOMA NOTED. SITES SOFT TO PALPATION. IVC FILTER IN PLACE PER CATH LABS RNS. HEPARIN TO BE STARTED PER PHARMACY. PATIENT HAS NO COMPLAINTS OF PAIN AT THIS TIME.
--- NOTE | 2019-05-12 18:25 | NUR ---
Piedad was tearful and expressed disapointment, fear, and self-blame. She responded well to theraputiclistening, emotional affirmation, gentle dianetic counselor, and prayer. Her son was sitting in the corner throughout visit and said very little. Piedad expressed relief and gratitude. Repeat Photocomposing Machine Operator services will remain available.
--- NOTE | 2019-05-12 18:41 | NUR ---
SHIFT SUMMARY PATIENT HAS REMAINED ALERT AND ORIENTED X 4. PATIENT HAD TMAX OF 99.2 DEGREES FAHRENHEIT AND WAS WHEN SHE RETURNED FROM ARCHITECTURAL DESIGNER. PATIENT STATED PAIN WAS MANAGEABLE THROUGHOUT SHIFT. PATIENT HAS REMAINED SATTING 90% AND GREATER ON 6 L NC. PATIENT LUNGS HAVE BEEN DIMINISHED IN LOWER LOBES AND CLEAR TO COARSE IN UPPER LOBES. PATIENT HAS CONTINUED TO USE INCENTIVE SPIROMETER AND FLUTTER VALVE THROUGHOUT SHIFT. PATIENT HAS REMAINED IN SR TO ST, HR 80S TO LOW 100S. BP HAS REMAINED STABLE. PATIENT DID NOT HAVE BM THIS SHIFT BUT DID REPORT FLATULENCE. GONZALEZ DRAINED ADEQUATE AMOUNT OF YELLOW COLORED URINE. PATIENT RETURNED FROM ARCHITECTURAL DESIGNER AT 1800. EKOS AND SHEATH REMOVED FROM R GROIN. MYNX CLOSURE AND PINA TO R GROIN. DR. STARKS SUCTIONED OUT CLOT FROM L LEG THROUGH L POPLITEAL; PINA IN PLACE. BOTH SITES APPEAR WNL- NO BLEEDING, BRUISING, HEMATOMA NOTED. SITES SOFT TO PALPATION. R GROIN SHEATH OUT AT 1636 AND L POP OUT STABLE AT 1739 PER ARCHITECTURAL DESIGNER RNS. IVC FILTER PLACED. PATIENT CONTINUES TO RECEIVE ROCEPHIN FOR ANTIOBIOTIC. PTT BEING TAKEN BY LAB RIGHT NOW AND PATIENT TO BE STARTED ON HEPARIN DRIP. BED LOW, CALL LIGHT IN REACH. PATIENT HAS NO COMPLAINTS AT THIS TIME. SON AT BEDSIDE.
--- NOTE | 2019-05-12 19:00 | NUR ---
ASSUMED CARE ASSUMED CARE OF PATIENT. PT IS AWAKE AND ALERT. ORIENTED TO SELF ONLY. FOLLOWS SIMPLE COMMANDS. SPEECH IS SLOW AND GARBLED. VOICE IS HOARSE. MOVES ALL EXTREMITIES. PULLING ON GONZALEZ CATHETER AND TRANSVENOUS PACEMAKER WIRE- BILATERAL SOFT WRIST RESTRAINTS INITIATED AT THIS TIME. MONITOR SHOWS PACED RHYTHM, RATE 60. BP STABLE WITH LEVOPHED @ 4MCG/MIN AND VASOPRESSIN @ 0.04UNITS/MIN. AFEBRILE. O2 6L NC- SATS 89-94%. RESPIRATIONS EVEN AND UNLABORED. SLIGHTLY TACHYPNEIC WITH EXERTION. OCCASIONAL MOIST COUGH. NPO AT THIS TIME. GONZALEZ PATENT AND DRAINING ABHINAV URINE. RIJ SITE PATENT, DRSG C/D/I. RIGHT FEMORAL TRANSVENOUS PACEMAKER SITE SOFT, DRSG D/I. COLOR PALE. SKIN W/D AT THIS TIME. SEE SHIFT ASSESSMENT FOR FULL ASSESSMENT.
--- NOTE | 2019-05-12 19:00 | NUR ---
ASSUMED CARE ASSUMED CARE OF PATIENT. AWAKE AND ALERT. CALM AND COOPERATIVE. CONTINUES TO BE FLAT ON BACK D/T RECENT SHEATH REMOVAL. C/O MILD LOWER BACK PAIN AND BLE PAIN, RIGHT > LEFT. DENIES NAUSEA. MONITOR SHOWS NSR, RATE 80s. BP STABLE. 02 6L NC. SATS STABLE. RESPIRATIONS EVEN AND UNLABORED. MILD SOB NOTED WITH EXERTION. OCCASIONAL NPC. GONZALEZ PATENT AND DRAINING YELLOW URINE. RIGHT GROIN SITE SOFT AND DRSG D/I. LEFT POPLITEAL SITE IS SOFT AND DRSG D/I. CMS INTACT TO BLE. DENIES NUMBNESS AND TINGLING AT THIS TIME. NERY PICC LINE NOTED. SEE SHIFT ASSESSMENT FOR FULL ASSESSMENT.
[2019-05-12 19:09] LABS: Mean Platelet Volume 11.6 fL (9.1-12.4); Platelet Count 181 K/mm3 (150-400)
[2019-05-12 19:30] LABS: International Normalized Ratio 1.22; Prothrombin Time Results 12.9 Sec (9.7-11.5)
--- NOTE | 2019-05-13 03:45 | NUR ---
AMBULATION PT REQUESTING TO GET OUT OF BED. DANGLED AT BEDSIDE WITHOUT DIFFICULTY. UP TO BSC WITH STANDBY ASSIST. DYSPNEA NOTED WITH EXERTION, BUT SATS REMAINED >92%.
[2019-05-13 03:55] LABS: BASOPHILS ABSOLUTE AUTO 0.07 K/mm3 (0.00-0.23); BASOPHILS PERCENT AUTO 1 % (0-2); EOSINOPHILS ABSOLUTE AUTO 0.23 K/mm3 (0.00-0.68); EOSINOPHILS PERCENT AUTO 4 % (0-6); Hematocrit 32.2 % (33.0-51.0); Hemoglobin 10.2 g/dL (11.5-16.0); IMMATURE GRAN ABSOLUTE AUTO 0.02 K/mm3 (0.00-0.10); IMMATURE GRAN PERCENT AUTO 0 % (0-1); LYMPHOCYTES ABSOLUTE AUTO 1.44 K/mm3 (0.84-5.20); LYMPHOCYTES PERCENT AUTO 24 % (21-46); MONOCYTES ABSOLUTE AUTO 0.57 K/mm3 (0.16-1.47); MONOCYTES PERCENT AUTO 10 % (4-13); Mean Corpuscular HGB 28.6 pg (26.0-34.0); Mean Corpuscular HGB Conc 31.7 g/dL (31.5-36.5); Mean Corpuscular Volume 90 fL (80-100); Mean Platelet Volume 11.5 fL (9.1-12.4); NEUTROPHILS ABSOLUTE AUTO 3.67 K/mm3 (1.96-9.15); NEUTROPHILS PERCENT AUTO 61 % (41-73); Platelet Count 184 K/mm3 (150-400); RDW Coefficient Variation 13.7 % (11.7-14.2); RDW Standard Deviation 45.1 fL (35.1-46.3); Red Blood Cell Count 3.57 M/mm3 (3.80-5.20)
[2019-05-13 04:14] LABS: Albumin, Blood 2.3 g/dL (3.4-5.0); Anion Gap 6 mmol/L (6-16); Blood Urea Nitrogen 9 mg/dL (8-24); Bun/Creatinine Ratio 13.5 (12.0-20.0); CO2, Blood 25 mmol/L (21-32); Calcium, Blood 7.9 mg/dL (8.5-10.1); Chloride, Blood 112 mmol/L (98-108); Creatinine, Blood 0.67 mg/dL (0.40-1.00); Glomerular Filtration Rate >60 (60-); Glucose, Blood 114 mg/dL (70-99); Phosphorus, Blood 4.5 mg/dL (2.5-4.9); Potassium, Blood 3.5 mmol/L (3.5-5.5); Sodium, Blood 143 mmol/L (136-145)
--- NOTE | 2019-05-13 06:33 | NUR ---
SHIFT SUMMARY NO ACUTE CHANGES DURING NOC. SLEPT INTERMITTENTLY. SLIGHTLY ANXIOUS AT TIMES, BUT CALMS EASILY WITH REASSURANCE. LESS ANXIOUS THIS AM. O2 REQUIREMENTS HAVE INCREASED T/O NIGHT, MOVING FROM 6LNC TO 10L OXYMIZER. O2 SATS ARE BETTER WHEN AWAKE. OCCASIONAL NPC. DYSPNEA NOTED WITH EXERTION. MONITOR SHOWS NSR. BP STABLE. AFEBRILE T/O NOC. HEPARIN INFUSING AT 15UNITS/KG/HR PER PHARMACY- NEXT PTT SCHEDULED FOR 1100. NERY PICC PATENT, DRSG D/I. UP TO BSC THIS AM- TOLERATED WELL. PASSED SMALL FORMED STOOL. GONZALEZ PATENT AND DRAINING DARK YELLOW URINE. RIGHT FEMORAL SITE SOFT AND WITHOUT HEMATOMA/BLEEDING. DRSG D/I. LEFT POPLITEAL SITE IS SOFT AND WITHOUT HEMATOMA/BLEEDING. DRSG C/I. CMS INTACT TO BLE. WILL REPORT TO DAY SHIFT RN WHEN AVAILABLE.
--- NOTE | 2019-05-13 08:05 | NUR ---
INITIAL ASSESSMENT PATIENT SLEEPING SOUNDLY UPON ENTERING ROOM. PATIENT WAKES TO VERBAL STIMULI. PATIENT ALERT AND ORIENTED X 4, AFEBRILE. PATIENT STATES SHE DOES FEEL SOME DISCOMFORT IN BOTH SIDES OF LUNGS WHEN TAKES DEEP BREATH IN. PATIENT 1 PERSON ASSIST TO BSC. PATIENT DECREASD FROM 10 L OXYMIZER TO 6 L NC AND REMAINS SATTING 90% AND GREATER. LUNGS DIMINISHED IN LOWER LOBES, CRACKLES NOTED IN L LUNG LOBES. PATIENT SOB WITH EXERTION. PATIENT IN SR, HR 70S TO 80S. BP STABLE. TRACE EDEMA NOTED TO BLES. GI WNL. PATIENT HAD BM ON GUEST SERVICE AIDE. PATIENT ON CARDIAC DIET. GONZALEZ IN PLACE; DRAINING DARK YELLOW COLORED URINE. R GROIN AND L POPLITEAL PULP GRINDER AND BLENDER ACCESS SITES WNL- NO BLEEDING, BRUISING HEMATOMA NOTED. SITES SOFT TO PALPATION. HEPARIN INFUSING AT 15 UNITS/ KG/ HOUR. BED LOW, CALL LIGHT IN REACH. PATIENT REPOSITIONING SELF IN BED. WILL CONTINUE TO MONITOR PATIENT FREQUENTLY THROUGHOUT SHIFT.
--- NOTE | 2019-05-13 08:30 | NUR ---
DR. PAZ IN ROOM TO SEE PATIENT. INFORMED THAT PATIENT ON 10 L OXYMIZER DURING THE NIGHT AND HAS BEEN DECREASED TO 6 L NC THIS AM. INFORMED THAT PATIENT REMAINS SATTING 90% AND GREATER. INFORMED THAT PATIENT SOB WITH EXERTION. INFORMED THAT PATIENT COMPLAINING THAT "SIDES HURT WHEN SHE TAKES A DEEP BREATH IN, LIKE HER LUNGS". INFORMED THAT LEFT LUNG LOBES HAVE CRACKLES UPON AUSCULTATION. INFORMED THAT PATIENT REMAINS ON HEPARIN DRIP AT 15 UNITS/ KG/ HOUR. NO ORDERS RECEIVED AT THIS TIME.
--- NOTE | 2019-05-13 12:40 | NUR ---
PATIENT SITTING IN CHAIR, VISITING WITH SISTER. PATIENT DENIES PAIN OR DISCOMFORT. PATIENT AFEBRILE. PATIENT DECREASED FROM 2 L NC TO RA AND REMAINS SATTING 90% AND GREATER. UPPER LUNG LOBES CLEAR TO AUSCULTATION, LOWER LUNG LOBES DIMINISHED. PATIENT IN SR, HR IN THE 80S. BP STABLE. R GROIN SITE AND L POPLITEAL SITE WNL- NO BLEEDING, BRUISING, HEMATOMA NOTED. SITES SOFT TO PALPATION. HEPARIN BOLUS GIVEN AND HEPARIN DRIP INCREASED TO 17 UNITS/ KG/ HOUR. NO OTHER ACUTE CHANGES TO NOTE ON AT THIS TIME. WILL CONTINUE TO MONITOR.
--- NOTE | 2019-05-13 17:00 | NUR ---
Telephone report was received from Kaylin Torres at this time. Anticipate arrival of pt to PCU 15 shortly.
--- NOTE | 2019-05-13 17:01 | NUR ---
SHIFT SUMMARY PATIENT REMAINED ALERT AND ORIENTED X 4, AFEBRILE. PATIENT AMBULATING WELL IN ROOM WITH SBA AND FWW. PATIENT HAS BEEN SATTING 90% AND GREATER ON RA MOST OF THE DAY. PATIENT DOES BECOME SOB WITH EXERTION. PATIENT HAS REMAINED IN SR, BP STABLE. PATIENT HAD BM THIS SHIFT. PATIENT HAS GOOD APPETITE AND HAS BEEN TOLERATING CARDIAC DIET WELL. GONZALEZ REMOVED THIS SHIFT. PATIENT HAS HAD GOOD VOID POST GONZALEZ. R GROIN SITE AND L POPLITEAL SITES REMAIN WNL- NO BLEEDING, BRUISING, HEMATOMA NOTED. IVS SALINE LOCKED. PATIENT RECEIVED BED BATH THIS SHIFT. HEPARIN DRIP DC'D AND PATIENT STARTED ON XARELTO PO. STARK INTO SEE PATIENT TODAY. PATIENT'S SISTER CAME TO VISIT FOR MOST OF THE DAY. PATIENT HAS NO COMPLAINTS AT THIS TIME. PATIENT WILL BE TRANSFERRING TO PCU, ROOM 15 AT THIS TIME.
--- NOTE | 2019-05-13 17:11 | NUR ---
PATIENT TRANSFERRED TO PCU, ROOM 15.
--- NOTE | 2019-05-13 18:04 | NUR ---
The pt arrived from ICU just at dinner time and is still sitting up in the recliner. She is cheerful, without any complaints and states no needs at this time.
--- NOTE | 2019-05-14 05:50 | NUR ---
PCU NOC SHIFT SUMMARY PATIENT REMAINS ALERT AND ORIENTED X4. RESP E/U AT REST ON ROOM AIR. PATIENT IS REQUIRING OXYGEN AT THIS TIME (2LPM NC) WHILE SLEEPING AND DOES BECOME SOB WITH EXCERTION. PATIENT KNOWLEDGABLE REGARDING DIAGNOSIS AND REMAINS INDEPENDANT IN THE ROOM. BOTH GROIN AND POPLETEAL INTERVENTION SITES WNL WITH NO BLEEDING OR HEMATOMA NOTED AT SITES. PATIENT REMAINS IN NSR WITH NO CARDIAC EVENTS PER AUTO BUMPER MECHANIC. PATIENT USES FWW HERE AND AT HOME. PATIENT SHOULD HAVE SLEEP STUDY TONIGHT FOR HOME 02 EVALUATION ASSESSMENT. WILL CONTINUE TO MONITOR AND GIVE REPORT TO DAYSHIFT RN. CALL LIGHT W/I REACH AND PATIENT DENIES NEEDS.
[2019-05-14] MEDS ORDERED: Senna Plus Tab1 EACH PO (12:17)
[2019-05-14] MEDS ORDERED: Vsl#3 Capsule1 EACH PO (12:18)
[2019-05-14] MEDS ORDERED: XARELTO15 MG PO (12:19)
[2019-05-14] MEDS ORDERED: XARELTO20 MG PO (12:19)
--- NOTE | 2019-05-14 15:38 | NUR ---
SHIFT/DISCHARGE SUMMARY: PT OK TO DISCHARGE TO HOME TODAY WITH DISCHARGE ORDERS. HOME 02 EVAL DONE PT WAS ABLE TO TOLERATE ROOMAIR WITH ADLS WITH NO ISSUES. PT TO CONTINUE IV ROCEPHIN AT THE INFUSION CLINIC FOR OSTEOMYELITIS, PICC LINE TO LEFT UPPER ARM KEPT PATENT AND INTACT. ACCESS SITES DRESSINGS ON LEFT POPLITEAL AND RIGHT GROIN INTACT. PT DISCARGE TEACHING/EDUCATION PROVIDED, NEW/OLD MEDICATION REGIMEN, ACCESS SITE/DEVICE POST PROCEDURE CARE AND FOLLOW UP APPTS WITH PCP AND INFECTIOUS DSE PROVIDER. ALL BELONGINGS SENT WITH PT, PT SIGNED DISCHARGE FORM.
== END 2019-05-14 13:30 | disposition home or self-care (01) | DRG 166 ==
LOC: ER 10:41 → ICUW 15:44 → ICUE 15:44 → ICUW 15:51 → PCU 05-13 17:09
PROVIDERS: Emergency Medicine; Nurse Practitioner Acute Care; Radiology Diagnostic Radiology; ADMIT Family Medicine
PROC: 06H03DZ Insertion of Intraluminal Device into Inferior Vena Cava, Percutaneous Approach (ICD-10-PCS; principal; 2019-05-13)
PROC: B31T1ZZ Fluoroscopy of Left Pulmonary Artery using Low Osmolar Contrast (ICD-10-PCS; 2019-05-13)
PROC: B31S1ZZ Fluoroscopy of Right Pulmonary Artery using Low Osmolar Contrast (ICD-10-PCS; 2019-05-13)
PROC: 3E04317 Introduction of Other Thrombolytic into Central Vein, Percutaneous Approach (ICD-10-PCS; 2019-05-13)
DX: I26.99 Other pulmonary embolism without acute cor pulmonale (principal); J96.01 Acute respiratory failure with hypoxia; Z68.41 Body mass index [BMI] 40.0-44.9, adult; I82.402 Acute embolism and thrombosis of unspecified deep veins of left lower extremity; E66.01 Morbid (severe) obesity due to excess calories; M46.40 Discitis, unspecified, site unspecified; Z87.891 Personal history of nicotine dependence
CPT/HCPCS: 36005; 36015; 36415; 37187; 37191; 37212; 37214; 37248; 51702; 71045; 71260; 75743; 75820; 75825; 76937; 80048; 80053; 80069; 84484; 85025; 85027; 85049; 85384; 85610; 85651; 85730; 86140; 86141; 93005; 93010; 93306; 93970; 94640; 94761; 96361; 96365; 96372-59; 99152; 99153; 99285-25; A9270; C1724; C1725; C1757; C1769; C1880; C1887; C1894; J0696; J1644; J1650; J2250; J2997; J3010; J7030; Q9967

== ENCOUNTER 2019-05-12 00:21 | Day surgery (SDC) | payer OTHER ==
[~2019-05-12 00:21] MED LIST changes: +BACLOFEN5 MG PO; +GABA100 PO; +OXYC5 PO; +Rocephin 1g1 G/50 ML IV
== END 2019-05-12 22:33 | disposition home or self-care (01) ==
LOC: ATC 00:21
DX: M46.47 Discitis, unspecified, lumbosacral region (principal); E66.9 Obesity, unspecified; Z68.39 Body mass index [BMI] 39.0-39.9, adult; Z79.2 Long term (current) use of antibiotics; Z79.899 Other long term (current) drug therapy; Z87.891 Personal history of nicotine dependence

== ENCOUNTER 2019-05-18 | Day surgery (SDC) | payer OTHER ==
[~2019-05-18] MED LIST changes: +Senna Plus Tab1 EACH PO; +Vsl#3 Capsule1 EACH PO; +XARELTO15 MG PO; +XARELTO20 MG PO
[2019-05-18 14:29] LABS: BASOPHILS ABSOLUTE AUTO 0.05 K/mm3 (0.00-0.23); BASOPHILS PERCENT AUTO 1 % (0-2); EOSINOPHILS ABSOLUTE AUTO 0.26 K/mm3 (0.00-0.68); EOSINOPHILS PERCENT AUTO 5 % (0-6); Hematocrit 35.5 % (33.0-51.0); Hemoglobin 11.3 g/dL (11.5-16.0); IMMATURE GRAN ABSOLUTE AUTO 0.02 K/mm3 (0.00-0.10); IMMATURE GRAN PERCENT AUTO 0 % (0-1); LYMPHOCYTES ABSOLUTE AUTO 1.31 K/mm3 (0.84-5.20); LYMPHOCYTES PERCENT AUTO 23 % (21-46); MONOCYTES ABSOLUTE AUTO 0.35 K/mm3 (0.16-1.47); MONOCYTES PERCENT AUTO 6 % (4-13); Mean Corpuscular HGB 28.4 pg (26.0-34.0); Mean Corpuscular HGB Conc 31.8 g/dL (31.5-36.5); Mean Corpuscular Volume 89 fL (80-100); Mean Platelet Volume 10.6 fL (9.1-12.4); NEUTROPHILS ABSOLUTE AUTO 3.66 K/mm3 (1.96-9.15); NEUTROPHILS PERCENT AUTO 65 % (41-73); Platelet Count 329 K/mm3 (150-400); RDW Coefficient Variation 13.8 % (11.7-14.2); RDW Standard Deviation 44.9 fL (35.1-46.3); Red Blood Cell Count 3.98 M/mm3 (3.80-5.20); White Blood Cell Count 5.65 K/mm3 (4.00-11.30)
[2019-05-18 14:45] LABS: Alanine Aminotransfer (ALT/SGP 27 U/L (12-78); Albumin, Blood 2.8 g/dL (3.4-5.0); Albumin/Globulin Ratio 0.7 (0.8-1.8); Alk Phos 76 U/L (50-136); Anion Gap 4 mmol/L (6-16); Aspartate Aminotrans (AST/SGOT 28 U/L (12-37); Bilirubin, Total 0.4 mg/dL (0.1-1.0); Blood Urea Nitrogen 8 mg/dL (8-24); Bun/Creatinine Ratio 12.1 (12.0-20.0); CO2, Blood 28 mmol/L (21-32); Calcium, Blood 8.6 mg/dL (8.5-10.1); Chloride, Blood 110 mmol/L (98-108); Creatinine, Blood 0.66 mg/dL (0.40-1.00); Globulin, Blood 4.3 g/dL (2.2-4.0); Glomerular Filtration Rate >60 (60-); Glucose, Blood 100 mg/dL (70-99); Potassium, Blood 3.9 mmol/L (3.5-5.5); Sodium, Blood 142 mmol/L (136-145); Total Protein, Blood 7.1 g/dL (6.4-8.2)
== END 2019-05-18 14:36 | disposition home or self-care (01) ==
LOC: ATC
PROVIDERS: Internal Medicine Infectious Disease
DX: M46.46 Discitis, unspecified, lumbar region (principal); E66.9 Obesity, unspecified; Z87.891 Personal history of nicotine dependence; Z68.39 Body mass index [BMI] 39.0-39.9, adult
CPT/HCPCS: 80053; 85025; 86140; J0696

== ENCOUNTER 2019-05-19 00:10 | Day surgery (SDC) | payer OTHER | END 2019-05-19 14:49 | disposition home or self-care (01) | LOC: ATC 00:10 | DX: M46.46 Discitis, unspecified, lumbar region (principal); Z88.5 Allergy status to narcotic agent | CPT/HCPCS: 96365; J0696 ==

== ENCOUNTER 2019-05-20 00:20 | Day surgery (SDC) | payer OTHER | END 2019-05-20 14:22 | disposition home or self-care (01) | LOC: ATC 00:20 | DX: M46.46 Discitis, unspecified, lumbar region (principal); E66.9 Obesity, unspecified; Z87.891 Personal history of nicotine dependence; Z68.39 Body mass index [BMI] 39.0-39.9, adult | CPT/HCPCS: 96365; J0696 ==

== ENCOUNTER 2019-05-22 13:21 | Day surgery (SDC) | payer OTHER | END 2019-05-22 14:35 | disposition home or self-care (01) | LOC: ATC 13:21 | DX: M46.46 Discitis, unspecified, lumbar region (principal); E66.9 Obesity, unspecified; Z68.39 Body mass index [BMI] 39.0-39.9, adult; Z87.891 Personal history of nicotine dependence | CPT/HCPCS: 96365; J0696 ==

== ENCOUNTER 2019-05-23 01:08 | Day surgery (SDC) | payer OTHER | END 2019-05-23 11:25 | disposition home or self-care (01) | LOC: ATC 01:08 | DX: M46.46 Discitis, unspecified, lumbar region (principal); E66.9 Obesity, unspecified; Z68.39 Body mass index [BMI] 39.0-39.9, adult; Z87.891 Personal history of nicotine dependence | CPT/HCPCS: 96365; J0696 ==

== ENCOUNTER 2019-05-27 02:40 | Day surgery (SDC) | payer OTHER | END 2019-05-27 16:12 | disposition home or self-care (01) | LOC: ATC 02:40 | DX: M46.46 Discitis, unspecified, lumbar region (principal); Z87.891 Personal history of nicotine dependence | CPT/HCPCS: 96365; J0696 ==

== ENCOUNTER → 2019-07-01 | Outpatient (CLI) | payer OTHER ==
[2019-07-07 13:08] LABS: HPV 16 Negative (Negative); HPV 18 Negative (Negative); HPV OTHER HR TYPES Negative (Negative)
== END | disposition home or self-care (01) ==
LOC: LAB SHORT 18:56 → LAB 18:56
PROVIDERS: Physician Assistant
DX: Z01.419 Encounter for gynecological examination (general) (routine) without abnormal findings (principal)
CPT/HCPCS: 87624; G0123

== ENCOUNTER 2019-08-25 06:34 | Day surgery (SDC) | payer OTHER ==
[~2019-08-25] VITALS: Ht 175.3 cm; Wt 130.0 kg
--- NOTE | 2019-08-25 10:14 | NUR ---
PT PROVIDED WITH MEAL TRAY. HOB RAISED 30 DEGREES. TOLERATES PO FLUIDS/FOOD WITH NO DIFFICULTIES. RIGHT IJ AND RIGHT FEMORAL VEIN SITES APPEAR SOFT NON TENDER WITH NO ACTIVE BLEEDING OOZING OR PAIN NOTED. CLEAR TEGADERMS INTACT. PT CALLING FOR A RIDE HOME, VSS. WILL CONTINUE TO MONITOR.
--- NOTE | 2019-08-25 10:50 | NUR ---
PT UP OUT OF BED WITH NO NEEDED ASSISTANCE, RIJ VENOUS AND R FEM VENOUS SITES REMAINS WNL. DRESSINGS C/D/I. AMBULATES WITH STEADY GAIT. VERBALIZED UNDERSTANDING OF D/C INSTRUCTIONS. PROVIDED WITH COPIES OF PAPERWORK. DECLINES NEED FOR W/C OUT TO MEET RIDE HOME. ACCOMPANIED BY RN OUT TO VEHICLE. IV WAS REMOVED FROM LEFT ARM WITH CATH INTACT, PRESSURE DRESSING APPLIED. NADN AT TIME OF DISPO. ENCOURAGED TO FOLLOW UP WITH PROVIDED IF NEEDED.
== END 2019-08-25 10:43 | disposition home or self-care (01) ==
LOC: MHTC 06:34
DX: I82.4Z2 Acute embolism and thrombosis of unspecified deep veins of left distal lower extremity (principal); I26.99 Other pulmonary embolism without acute cor pulmonale; N95.0 Postmenopausal bleeding; Z79.01 Long term (current) use of anticoagulants
CPT/HCPCS: 37193; 76937; 99152; 99153; C1769; C1773; C1880; C1887; C1894; J1644; J2250; J3010; J7030; J7040; Q9967

== ENCOUNTER 2021-10-25 08:36 | Day surgery (SDC) | payer OTHER ==
[~2021-10-25] VITALS: Ht 172.7 cm; Wt 134.5 kg
--- NOTE | 2021-10-25 09:29 | NUR ---
10/25/21 0929 Geena Nunes History, Chart, Medications and Allergies reviewed before start of procedure.MONITOR INTACT WITH CONTINUOUS PULSE OXIMETRY AND INTERMITTENT BP. 3-LEAD EKG REVIEWED WITH PHYSICIAN PRIOR TO START OF PROCEDURE. O2 VIA POM INTACT THROUGHOUT SEDATION/PROCEDURE. See Anesthesia record FROM DR. PITTS
--- NOTE | 2021-10-25 10:16 | NUR ---
0915- Patient states colon prep results clear. Patient States Post-Procedure ride home has been arranged.
--- NOTE | 2021-10-25 10:35 | NUR ---
DISCHARGE SUMMARY PT A&OX4, VSS/RA, HERON PO H20, DENIES PAIN, DENIES N&V, DC INS PROVIDED, PT REP UNDERSTANDING THOSE INSTRUCTIONS. LEFT FLOOR VIA WC WITH VOLUNTEER TO GO HOME WITH SISTER/DIRECTOR OF STRATEGIC SOURCING WITH DC INS AND ALL PERSONAL POSSESSIONS. IV DC'D.
== END 2021-10-25 22:37 | disposition home or self-care (01) ==
LOC: ORSCMMR 08:36 → ORD 11:15 → ORSCMMR 22:37
PROVIDERS: Internal Medicine Gastroenterology
PROC: 0DBN8ZX Excision of Sigmoid Colon, Via Natural or Artificial Opening Endoscopic, Diagnostic (ICD-10-PCS; principal; 2021-10-25 09:30)
DX: Z12.11 Encounter for screening for malignant neoplasm of colon (principal); Z86.010 Personal history of colon polyps; D12.5 Benign neoplasm of sigmoid colon; E66.01 Morbid (severe) obesity due to excess calories; Z68.42 Body mass index [BMI] 45.0-49.9, adult; Z87.891 Personal history of nicotine dependence
CPT/HCPCS: 88305; J2704; J7120

== ENCOUNTER 2023-01-31 06:05 | Day surgery (SDC) | payer OTHER ==
[~2023-01-31] VITALS: Ht 172.7 cm; Wt 113.3 kg
[~2023-01-31 06:05] MED LIST changes: +Adipex-P37.5 M1 PO; +IBUP600 PO
--- NOTE | 2023-01-31 08:20 | NUR ---
01/31/23 0819 Sofy Lloyd FIRST DOSE OF TXA STARTED AT 0750.
[2023-01-31 11:15] VITALS: BP 127/61
--- NOTE | 2023-01-31 15:02 | NUR ---
01/31/23 1502 Shade Donnelly IV REMOVED INTACT. SITE WNL. PT REPORTED 6/10 PAIN UPON DISCHARGE BUT DESCRIBED PAIN TOLERABLE AND EXPRESSED READINESS TO RETURN HOME. PT APPEARED RELAXED AND TALKATIVE UPON DISCHARGE . PT COMPLAINED OF INTERMITTENT CRAMPS IN CALF AND ANKLE THROUGHOUT STAY IN SDU THAT CAUSED 8-9/10 PAIN. PT STATED THAT SHE EXPERIENCES SIMILAR CRAMPS AT HOME. PT REFUSED FURTHER IV PAIN MEDICATION DUE TO DIZINESS. SHE WAS ASSISTED WITH POSITIONING AND FOUND POSITIONS THAT HELPED RESOLVE CRAMPS. DR. CHACON WAS CONSULTED ABOUT MUSCLE RELAXERS AND INSTRUCTED PATIENT TO CALL HIS OFFICE IF PERSCRIPTION IS NEEDED. DR. ROGER WAS CONSULTED REGARDING DIZZINESS, CRAMPING, AND PAIN CONTROL. HE APPROVED PT'S DISCHARGE ONCE PAIN LEVEL WAS TOLERABLE. PT REPORTED DIZZINESS IMPROVING AT TIME OF DISCHARGE.
== END 2023-01-31 12:40 | disposition home or self-care (01) ==
LOC: ORSCSDS 06:05
PROVIDERS: Podiatrist Foot & Ankle Surgery
PROC: 0SRG0JZ Replacement of Left Ankle Joint with Synthetic Substitute, Open Approach (ICD-10-PCS; principal; 2023-01-31 07:30)
PROC: 0L8P0ZZ Division of Left Lower Leg Tendon, Open Approach (ICD-10-PCS; principal; 2023-01-31 07:30)
DX: M24.872 Other specific joint derangements of left ankle, not elsewhere classified (principal); M19.172 Post-traumatic osteoarthritis, left ankle and foot; I10 Essential (primary) hypertension; J45.909 Unspecified asthma, uncomplicated; E66.9 Obesity, unspecified; Z68.38 Body mass index [BMI] 38.0-38.9, adult; Z86.718 Personal history of other venous thrombosis and embolism; Z79.899 Other long term (current) drug therapy; Z87.891 Personal history of nicotine dependence
CPT/HCPCS: A9270; C1776; J0171; J0690; J0735; J1885; J2250; J2704; J2795; J3010; J7120

== ENCOUNTER → 2023-08-18 | Outpatient (CLI) | payer OTHER ==
[2023-08-18 12:27] LABS: BASOPHILS ABSOLUTE AUTO 0.05 K/mm3 (0.00-0.23); BASOPHILS PERCENT AUTO 1 % (0-2); EOSINOPHILS ABSOLUTE AUTO 0.19 K/mm3 (0.00-0.68); EOSINOPHILS PERCENT AUTO 4 % (0-6); Hematocrit 40.5 % (33.0-51.0); Hemoglobin 13.2 g/dL (11.5-16.0); IMMATURE GRAN ABSOLUTE AUTO 0.01 K/mm3 (0.00-0.10); IMMATURE GRAN PERCENT AUTO 0 % (0-1); LYMPHOCYTES ABSOLUTE AUTO 1.49 K/mm3 (0.84-5.20); LYMPHOCYTES PERCENT AUTO 32 % (21-46); MONOCYTES ABSOLUTE AUTO 0.36 K/mm3 (0.16-1.47); MONOCYTES PERCENT AUTO 8 % (4-13); Mean Corpuscular HGB 29.2 pg (26.0-34.0); Mean Corpuscular HGB Conc 32.6 g/dL (31.5-36.5); Mean Corpuscular Volume 90 fL (80-100); Mean Platelet Volume 11.9 fL (9.1-12.4); NEUTROPHILS ABSOLUTE AUTO 2.51 K/mm3 (1.96-9.15); NEUTROPHILS PERCENT AUTO 55 % (41-73); Platelet Count 238 K/mm3 (150-400); RDW Coefficient Variation 13.4 % (11.7-14.2); RDW Standard Deviation 44.4 fL (35.1-46.3); Red Blood Cell Count 4.52 M/mm3 (3.80-5.20); White Blood Cell Count 4.61 K/mm3 (4.00-11.30)
[2023-08-18 12:39] LABS: Alanine Aminotransfer (ALT/SGP 20 U/L (12-78); Albumin, Blood 3.4 g/dL (3.4-5.0); Albumin/Globulin Ratio 0.9 (0.8-1.8); Alk Phos 73 U/L (50-136); Anion Gap 7 mmol/L (3-11); Aspartate Aminotrans (AST/SGOT 16 U/L (12-37); Bilirubin, Total 0.5 mg/dL (0.1-1.0); Blood Urea Nitrogen 13 mg/dL (8-24); Bun/Creatinine Ratio 17.6 (12.0-20.0); CHOL/HDL RATIO 3.1; CO2, Blood 29 mmol/L (21-32); Calcium, Blood 8.8 mg/dL (8.5-10.1); Chloride, Blood 111 mmol/L (98-108); Cholesterol 188 mg/dL (50-200); Creatinine, Blood 0.74 mg/dL (0.40-1.00); Globulin, Blood 3.8 g/dL (2.2-4.0); Glomerular Filtration Rate 93 (60-); Glucose, Blood 109 mg/dL (70-99); HDL Cholesterol 61 mg/dL (>39); LDL/HDL RATIO 1.8; Low Density Lipoprotein Chol 107 mg/dL (0-110); Potassium, Blood 3.8 mmol/L (3.5-5.5); Sodium, Blood 143 mmol/L (136-145); Total Protein, Blood 7.2 g/dL (6.4-8.2); Triglycerides 100 mg/dL (30-160); Very Low Density Lipoprot Chol 20 mg/dL (6-32)
== END | disposition home or self-care (01) ==
LOC: LAB 10:47 → LAB SHORT 10:47
PROVIDERS: Family Medicine
DX: R60.0 Localized edema (principal); Z79.899 Other long term (current) drug therapy
CPT/HCPCS: 80053; 80061; 83036; 83880; 85025

== ENCOUNTER → 2024-11-22 | Outpatient (CLI) | payer OTHER ==
[2024-11-22 11:40] LABS: BASOPHILS ABSOLUTE AUTO 0.06 K/mm3 (0.00-0.23); BASOPHILS PERCENT AUTO 1 % (0-2); EOSINOPHILS ABSOLUTE AUTO 0.21 K/mm3 (0.00-0.68); EOSINOPHILS PERCENT AUTO 4 % (0-6); Hematocrit 44.5 % (33.0-51.0); Hemoglobin 14.7 g/dL (11.5-16.0); IMMATURE GRAN ABSOLUTE AUTO 0.01 K/mm3 (0.00-0.10); IMMATURE GRAN PERCENT AUTO 0 % (0-1); LYMPHOCYTES ABSOLUTE AUTO 1.50 K/mm3 (0.84-5.20); LYMPHOCYTES PERCENT AUTO 31 % (21-46); MONOCYTES ABSOLUTE AUTO 0.36 K/mm3 (0.16-1.47); MONOCYTES PERCENT AUTO 7 % (4-13); Mean Corpuscular HGB Conc 33.0 g/dL (31.5-36.5); Mean Corpuscular Volume 91 fL (80-100); NEUTROPHILS ABSOLUTE AUTO 2.77 K/mm3 (1.96-9.15); NEUTROPHILS PERCENT AUTO 57 % (41-73); NRBC ABSOLUTE 0.00 K/mm3 (0.00-0.02); NRBC Auto 0.0 /100 WBC (0.0-0.2); Platelet Count 230 K/mm3 (150-400); RDW Coefficient Variation 13.0 % (11.7-14.2); RDW Standard Deviation 43.6 fL (35.1-46.3)
[2024-11-22 12:40] LABS: LDL/HDL RATIO 2.1; Thyroid Stimulating Hormone 1.790 uIU/mL (0.360-4.800)
[2024-11-22 12:41] LABS: Alanine Aminotransfer (ALT/SGP 24 U/L (12-78); Albumin, Blood 3.4 g/dL (3.4-5.0); Albumin/Globulin Ratio 0.8 (0.8-1.8); Anion Gap 5 mmol/L (3-11); Aspartate Aminotrans (AST/SGOT 17 U/L (12-37); Bilirubin, Total 0.4 mg/dL (0.1-1.0); Blood Urea Nitrogen 13 mg/dL (8-24); CHOL/HDL RATIO 3.3; CO2, Blood 29 mmol/L (21-32); Calcium, Blood 8.9 mg/dL (8.5-10.1); Chloride, Blood 108 mmol/L (98-108); Cholesterol 197 mg/dL (50-200); Creatinine, Blood 0.76 mg/dL (0.40-1.00); Globulin, Blood 4.1 g/dL (2.2-4.0); Glucose, Blood 102 mg/dL (70-99); HDL Cholesterol 60 mg/dL (>39); Low Density Lipoprotein Chol 123 mg/dL (0-110); Potassium, Blood 4.0 mmol/L (3.5-5.5); Sodium, Blood 138 mmol/L (136-145); Total Protein, Blood 7.5 g/dL (6.4-8.2); Triglycerides 68 mg/dL (30-160); Very Low Density Lipoprot Chol 13 mg/dL (6-32)
== END ==
LOC: LAB 08:25 → LAB SHORT 08:25
PROVIDERS: Nurse Practitioner Family
DX: Z79.899 Other long term (current) drug therapy (principal)
CPT/HCPCS: 80053; 80061; 82306; 82607; 82746; 83036; 83880; 84439; 84443; 84481; 85025